=== PATIENT | male | born 1950 | race Caucasian/White ===

== ENCOUNTER 2025-03-22 18:49 | Emergency (ER) | payer MEDICARE, OTHER ==
[2025-03-22] MEDS: Amoxicillin/Clavulanate K 875-125 MG Tab PO ONE (20:53)
[2025-03-22] MEDS: Diphtheria,Pertussis(Acell),Tetanus Vaccine 0.5 ML Syringe IM ONE (21:03)
== END 2025-03-22 21:13 | disposition home or self-care (01) ==
LOC: JD.ED 18:49
DX: S51.851A Open bite of right forearm, initial encounter (principal); Z79.899 Other long term (current) drug therapy; W54.0XXA Bitten by dog, initial encounter; Y93.89 Activity, other specified
CPT/HCPCS: 12001; 90471; 90715; 99283; A9270; J2003